=== PATIENT | female | born 1985 | race Caucasian/White ===

== ENCOUNTER 2016-05-19 15:05 | Emergency (ER) | payer MEDICAID ==
[2016-05-19 15:52] LABS: BASOPHILS 0.2 % (0.0-2.0); EOSINOPHILS 0.5 % (0-7); HEMATOCRIT 48.8 % (36.0-48.0); HEMOGLOBIN 16.9 g/dL (12-16); IMMATURE GRANULOCYTES 0.3 % (0-5); LYMPHOCYTES 3.9 % (15-50); MCH 32.3 pg (26.0-34.0); MCHC 34.6 g/dL (31.0-37.0); MCV 93.1 fL (80.0-100.0); MEAN PLATELET VOLUME 11.2 fL (7.4-10.4); NEUTROPHILS 91.1 % (40-80); PLATELET COUNT 219 10x3/uL (130-400); RBC 5.24 10x6/uL (4.00-5.40); RDW 12.7 % (11.5-14.5); WBC 11.7 10x3/uL (4.8-10.8)
[2016-05-19 16:11] LABS: HCG URINE NEGATIVE (NEGATIVE)
[2016-05-19 16:16] LABS: APPEARANCE HAZY (CLEAR); COLOR YELLOW (YELLOW)
[2016-05-19 16:17] LABS: BILIRUBIN NEGATIVE (NEGATIVE); GLUCOSE NEGATIVE (NEGATIVE); KETONE NEGATIVE (NEGATIVE); LEUKOCYTE ESTERASE 1+ (NEGATIVE); NITRITE NEGATIVE (NEGATIVE); PROTEIN TRACE mg/dL (NEGATIVE); SPECIFIC GRAVITY 1.025 (1.005-1.020); UROBILINOGEN NORMAL (NORMAL)
[2016-05-19 16:18] LABS: BACTERIA MODERATE /hpf (NONE SEEN); EPITHELIAL CELLS 0-5 /hpf (0-5); RED CELLS - URINE 0-5 /hpf (0-5)
[2016-05-19 17:41] LABS: CALC OSMOLALITY 269 mosm/kg (275-300); CALCIUM 8.8 mg/dL (8.5-10.1); CARBON DIOXIDE 24.8 mmol/L (21.0-32.0); CHLORIDE - SERUM 100 mmol/L (98-107); CREATININE - SERUM 0.9 mg/dL (0.6-1.3); GLUCOSE 117 mg/dL (74-106); POTASSIUM - SERUM 3.6 mmol/L (3.5-5.1); SODIUM 135 mmol/L (136-145); UREA NITROGEN 9 mg/dL (7-18); eGFR NON AFRICAN AMERICAN 79 mL/min (90-120)
== END 2016-05-19 19:05 | disposition home or self-care (01) ==
LOC: D.ER 15:05
PROVIDERS: Emergency Medicine; Nurse Practitioner Acute Care
DX: K52.9 Noninfective gastroenteritis and colitis, unspecified (principal); F17.200 Nicotine dependence, unspecified, uncomplicated

== ENCOUNTER 2016-08-09 13:04 | Emergency (ER) | payer MEDICAID | END 2016-08-09 15:15 | disposition home or self-care (01) | LOC: D.ER 13:04 | DX: S90.02XA Contusion of left ankle, initial encounter (principal); W20.8XXA Other cause of strike by thrown, projected or falling object, initial encounter; Y93.89 Activity, other specified; Y92.89 Other specified places as the place of occurrence of the external cause; F17.200 Nicotine dependence, unspecified, uncomplicated ==

== ENCOUNTER 2016-12-29 07:58 | Day surgery (SDC) | payer MEDICAID ==
[~2016-12-29 07:58] MED LIST: TYLENOL W/CODEI1 TAB PO; XANAX0.25 MG PO
[2016-12-29 08:46] LABS: HEMATOCRIT 43.2 % (36.0-48.0); HEMOGLOBIN 15.1 g/dL (12-16); MCH 32.1 pg (26.0-34.0); MCV 91.9 fL (80.0-100.0); MEAN PLATELET VOLUME 11.1 fL (7.4-10.4); RBC 4.7 10x6/uL (4.00-5.40); RDW 12.3 % (11.5-14.5); WBC 7.9 10x3/uL (4.8-10.8)
[2016-12-29 08:56] LABS: HCG SERUM POSITIVE (NEGATIVE)
[2016-12-29] MEDS ORDERED: MELOXICAM TAB 15M PO (09:20)
[2016-12-29 09:25] VITALS: BP 95/72; BMI 21.5
[2016-12-29] MEDS ORDERED: TYLENOL W/CODEI1 TAB PO (12:49)
--- NOTE | 2016-12-29 14:42 | NUR ---
1320 IV DC WITH CATHER TIP INTACT
--- NOTE | 2017-01-04 18:14 | OP ---
PATIENT NAME: KEYLA DE LOS SANTOS MEDICAL RECORD: [id number] :87 LOCATION:[facility] ADMISSION DATE: SURGEON: ELLIS FULLER DO DATE OF OPERATION: 12/29/2016 PROCEDURE PERFORMED: Right endoscopic carpal tunnel release. PREOPERATIVE DIAGNOSIS: Right carpal tunnel syndrome. POSTOPERATIVE DIAGNOSIS: Right carpal tunnel syndrome. INDICATIONS: Ms. 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 She presented to me with a nerve conduction study, which showed mild carpal tunnel, distal motor latency in the median nerve in the right hand of 3.9. I discussed at length with her that this is borderline as far as carpal tunnel syndrome and that we could try an injection of steroid in order to get her over these symptoms and she did not want that, in fact, SHE HAS AN ALLERGY TO STEROIDS and she said it is not possible to get one. She says she is tired of the right hand waking her up at night with pain and numbness and tingling. Anytime she goes to sleep, it wakes her up. She is not sleeping through the night. She also says anytime she drives with the hand elevated or on the phone, the hand goes numb and goes to sleep and at her behest and request, decided to undergo the procedure of the right endoscopic carpal tunnel release. Once this was done in the office, she was here for surgery and discovered that she was and this complicated matters somewhat. After a long discussion with her, she decided that she wanted to continue to undergo the procedure knowing the risk and understanding that. This was also discussed with the range mounter and they said that local block would be fine, it should not cause any problems with the whatsoever. So, we proceeded with the local block to do this with her awake. DESCRIPTION OF PROCEDURE: The patient was given a local block in the preoperative area and given a gram of Ancef as well preoperatively. Once this was done, she was taken to the operative suite and laid in supine position. The right arm was prepped and draped in sterile fashion. Time-out was performed and everyone was in agreeance with correct site, side, and patient and everyone is aware of the risks and benefits of the procedure including the patient and everyone was in agreeance. Once this time-out was done, the arm was prepped and draped. An incision was marked out just over the palmaris longus tendon at the proximal wrist crease. Skin was incised with a #15 blade and then blunt dissection was made with Nayan down to the carpal tunnel, this was in the proximal forearm fascia and the distal forearm fascia was released under direct visualization using scissors and a pickup. Then, the dilator was used to open the carpal tunnel and the sheath was placed into the carpal tunnel itself. Once this was done, the camera was placed into the carpal tunnel and into a sheath and a probe was used to probe the transverse carpal ligament, was seen to be very taut and thick. Then, the rasp was used to clean it off to ensure there was no other object in the way and the nerve was not in the way. Once this was done, the knife was then entered into the sheath and used to cut the transverse carpal ligament under direct visualization of the camera and the camera followed it all the way out through the last millimeter of the transverse carpal ligament, which was released with scissors and a pickup. Once this was done, the tourniquet was let down and the larger end of the Ragnell was used to visualize the transverse carpal ligament and seeing that, it was divided all the OPERATIVE REPORT [id number] KEYLA DE LOS SANTOS through the whole carpal tunnel. Once tourniquet was let down, it was 9 minutes that it had been up, and pressure was held on the wound. No bleeding was seen. Then, the incision was closed using 5-0 Monocryl in 2 inverted interrupted stitches. Then, a single Steri-Strip was placed over the wound. Adaptic, 4 x 4, Tegaderm, and then a Kerlix and a lightly wrapped Coban was placed over the wrist. The patient was then taken back to her room as she had not had any anesthetic. The block worked well throughout. Blood loss was minimal. TRANSINT:[id number] Voice Confirmation ID: [id number] DOCUMENT ID: [id number] ELLIS FULLER DO at 1816 CC: [id number] DICTATION DATE: 12/29/16 124 TEST PREPARER: 12/29/16 1607 [facility] 12/29/16 [facility] [address] [place] [address]
== END 2016-12-29 13:50 | disposition home or self-care (01) ==
LOC: D.OPS 07:58 → D.PAN 10:15 → D.OPS 10:30 → D.PAN 10:30 → D.OPS 13:50
PROVIDERS: Anesthesiology
DX: G56.01 Carpal tunnel syndrome, right upper limb (principal); Z88.8 Allergy status to other drugs, medicaments and biological substances; Z01.812 Encounter for preprocedural laboratory examination

== ENCOUNTER → 2017-06-10 11:30 | Outpatient (CLI) | payer MEDICAID ==
[~2017-06-10 11:30] MED LIST changes: +HYDROCODONE-APA1 TAB PO; +IBUPROFEN600 MG PO; +MELOXICAM TAB 15M PO; +PEPCID20 MG PO; +PRENATAL COMPLE1 TAB PO; +ZOFRAN ODT4 MG/UDTAB PO
== END | disposition home or self-care (01) ==
LOC: D.LDO 11:30
DX: O26.899 Other specified pregnancy related conditions, unspecified trimester (principal); Z3A.00 Weeks of gestation of pregnancy not specified; R11.2 Nausea with vomiting, unspecified

== ENCOUNTER → 2017-06-13 21:22 | Outpatient (CLI) | payer MEDICAID ==
[2017-06-13 21:53] LABS: APPEARANCE CLEAR (CLEAR); BILIRUBIN NEGATIVE (NEGATIVE); COLOR STRAW (YELLOW); GLUCOSE NEGATIVE (NEGATIVE); KETONE NEGATIVE (NEGATIVE); NITRITE NEGATIVE (NEGATIVE); PROTEIN NEGATIVE (NEGATIVE); UROBILINOGEN NORMAL (NORMAL)
== END | disposition home or self-care (01) ==
LOC: D.LDO 21:22
PROVIDERS: Obstetrics & Gynecology
DX: O26.893 Other specified pregnancy related conditions, third trimester (principal); Z3A.35 35 weeks gestation of pregnancy; R11.2 Nausea with vomiting, unspecified

== ENCOUNTER 2017-07-02 20:56 | Inpatient (IN) | payer MEDICAID ==
[~2017-07-02] VITALS: Ht 170.2 cm; Wt 74.8 kg
--- NOTE | ~2017-07-02 | OP ---
PATIENT NAME: KEYLA DE LOS SANTOS MEDICAL RECORD: [id number] :87 LOCATION:[facility] ADMISSION DATE:07/03/17 SURGEON: YAAKOV CRYSTAL MD DATE OF OPERATION: 07/03/2017 PREOPERATIVE DIAGNOSES: 1. Severe preeclampsia. 2. Failed induction of labor. POSTOPERATIVE DIAGNOSES: 1. Severe preeclampsia. 2. Failed induction of labor. PROCEDURE: Primary low transverse section. SURGEON: Yaakov Crystal MD ANESTHESIA: Regional. INTRAVENOUS FLUIDS: Per anesthesia record. ESTIMATED BLOOD LOSS: 1000 cc. SPECIMENS: Placenta and cord for gases. FINDINGS: 1. Viable infant, Apgars 9 at one and 9 at five. 2. Placenta delivered manually intact, 3-vessel cord noted. 3. Grossly normal adnexa noted bilaterally. COMPLICATIONS: None apparent. DESCRIPTION OF PROCEDURE: The patient taken to the operating room, where regional anesthesia was achieved without difficulty. The patient was then prepped and draped in normal sterile fashion in the dorsal supine position. SCDs were on and functioning normally, and a Deleon catheter had been placed and was draining freely. The aesthetic field was tested following prepped and draped, and a Pfannenstiel skin incision was made, extended downward to the underlying subcutaneous fat to the level of the fascia. This was then excised in the midline and extended bilaterally using the Sterling scissors. Superior and inferior aspects of the fascial incision were then grasped with Nora clamps times 2, tented upward, and sharply dissected from the underlying rectus muscle using the Sterling scissors and the Bovie cautery. Rectus muscles were then bluntly in the midline. The peritoneum entered sharply at the superior aspect of the incision using the Metzenbaum scissors. Peritoneal incision was then excised bilaterally and inferiorly using the Metzenbaum scissors under direct visualization of the bladder. A bladder blade was then placed into the pelvis and a bladder flap was created by excising the anterior leaf of the broad ligament across the lower uterine segment. A low transverse incision was then made in the uterus using a scalpel. This was extended superiorly and inferiorly using the Pelosi method. Baby's head was then delivered atraumatically followed by the body. The was bulb suctioned upon delivery. Cord was clamped times 2, cut, and the infant was handed to the awaiting nursery team. Cord was then obtained for gases, and the placenta was then removed manually intact. Three-vessel cord was noted. Uterus was then OPERATIVE REPORT [id number] KEYLA DE LOS SANTOS exteriorized, cleared of all clots and debris, and vigorously massaged until good uterine tone was noted. The uterine incision was then repaired with 0 Vicryl in a running locked fashion times 2 with good hemostasis noted. Posterior cul-de-sac was then thoroughly irrigated, and the uterus was replaced into the pelvis. Anterior cul-de-sac was then thoroughly irrigated and again good hemostasis was noted from the uterine incision site. Counts were correct times 2 for needles, sponges, and instruments. The fascia was then repaired with 0 loop PDS times 1, and the skin repaired with memo. The patient tolerated the procedure well, transferred to postanesthesia recovery stable without incident. TRANSINT:[id number] Voice Confirmation ID: [id number] DOCUMENT ID: [id number] YAAKOV CRYSTAL MD at 1614 CC: [id number] DICTATION DATE: 07/17/17 06 KENO DEALER: 07/17/17 0756 DIS IN 07/05/17 [facility] [address] [place] [address]
[~2017-07-02 20:56] MED LIST changes: -HYDROCODONE-APA1 TAB PO; -IBUPROFEN600 MG PO; -PEPCID20 MG PO; -PRENATAL COMPLE1 TAB PO; -ZOFRAN ODT4 MG/UDTAB PO
[2017-07-02 23:02] LABS: BASOPHILS 0.1 % (0-2); EOSINOPHILS 0.9 % (0-7); HEMATOCRIT 35.5 % (36.0-48.0); HEMOGLOBIN 12.4 g/dL (12-16); IMMATURE GRANULOCYTES 0.3 % (0-5); LYMPHOCYTES 17.3 % (15-50); MCH 31.6 pg (26.0-34.0); MCHC 34.9 g/dL (31.0-37.0); MCV 90.6 fL (80.0-100.0); MEAN PLATELET VOLUME 11.9 fL (7.4-10.4); MONOCYTES 4.9 % (2-11); NEUTROPHILS 76.5 % (40-80); RBC 3.92 10x6/uL (4.00-5.40); RDW 11.8 % (11.5-14.5)
[2017-07-02 23:03] LABS: PLATELET COUNT 145 10x3/uL (130-400)
[2017-07-02 23:15] LABS: ALBUMIN 2.2 g/dL (3.4-5.0); ALKALINE PHOSPHATASE 208 U/L (46-116); ALT (SGPT) 8 U/L (10-68); BILIRUBIN - DIRECT 0.11 mg/dL (0.00-0.30); BILIRUBIN - INDIRECT 0.12 mg/dL (0.00-1.00); BILIRUBIN - TOTAL 0.23 mg/dL (0.2-1.3); CALC OSMOLALITY 273 mosm/kg (275-300); CALCIUM 8.6 mg/dL (8.5-10.1); CARBON DIOXIDE 24.5 mmol/L (21.0-32.0); CHLORIDE - SERUM 105 mmol/L (98-107); CREATININE - SERUM 0.6 mg/dL (0.6-1.3); GLUCOSE 82 mg/dL (74-106); PROTEIN - SERUM 5.9 g/dL (6.4-8.2); SODIUM 139 mmol/L (136-145); UREA NITROGEN 4 mg/dL (7-18); eGFR NON AFRICAN AMERICAN > 90 mL/min (90-120)
[2017-07-03] VITALS (22 sets, daily range): BP systolic 125–190; BP diastolic 58–110; Ht 170.2 cm; Wt 74.8 kg
[2017-07-03 00:28] LABS: APPEARANCE CLEAR (CLEAR); BILIRUBIN NEGATIVE (NEGATIVE); COLOR YELLOW (YELLOW); GLUCOSE NEGATIVE (NEGATIVE); KETONE NEGATIVE (NEGATIVE); NITRITE NEGATIVE (NEGATIVE); PROTEIN NEGATIVE (NEGATIVE); UROBILINOGEN NORMAL (NORMAL)
[2017-07-03] MEDS ORDERED: PRENATAL COMPLE1 TAB PO (04:05)
[2017-07-03] MEDS ORDERED: ZOFRAN ODT4 MG/UDTAB PO (04:08)
[2017-07-03] MEDS ORDERED: PEPCID20 MG PO (04:09)
[2017-07-03 21:16] LABS: BASOPHILS 0.1 % (0-2); EOSINOPHILS 0.7 % (0-7); HEMATOCRIT 36.2 % (36.0-48.0); HEMOGLOBIN 12.3 g/dL (12-16); IMMATURE GRANULOCYTES 0.3 % (0-5); LYMPHOCYTES 15.1 % (15-50); MCH 31.1 pg (26.0-34.0); MCV 91.4 fL (80.0-100.0); MEAN PLATELET VOLUME 11.8 fL (7.4-10.4); MONOCYTES 4.1 % (2-11); NEUTROPHILS 79.7 % (40-80); PLATELET COUNT 140 10x3/uL (130-400); RBC 3.96 10x6/uL (4.00-5.40); RDW 11.7 % (11.5-14.5); WBC 15.3 10x3/uL (4.8-10.8)
[2017-07-04] VITALS (11 sets, daily range): BP systolic 132–156; BP diastolic 70–97
[2017-07-04 07:00] LABS: BASOPHILS 0.1 % (0-2); EOSINOPHILS 0.8 % (0-7); HEMATOCRIT 36.6 % (36.0-48.0); HEMOGLOBIN 12.6 g/dL (12-16); IMMATURE GRANULOCYTES 0.3 % (0-5); LYMPHOCYTES 12.7 % (15-50); MCH 31.2 pg (26.0-34.0); MCHC 34.4 g/dL (31.0-37.0); MCV 90.6 fL (80.0-100.0); MEAN PLATELET VOLUME 11.5 fL (7.4-10.4); MONOCYTES 3.7 % (2-11); NEUTROPHILS 82.4 % (40-80); PLATELET COUNT 153 10x3/uL (130-400); RBC 4.04 10x6/uL (4.00-5.40); RDW 11.8 % (11.5-14.5); WBC 14.5 10x3/uL (4.8-10.8)
[2017-07-05 00:45] VITALS: BP 167/81
[2017-07-05 08:30] VITALS: BP 143/80
[2017-07-05] MEDS ORDERED: HYDROCODONE-APA1 TAB PO (11:43)
[2017-07-05] MEDS ORDERED: IBUPROFEN600 MG PO (11:43)
[2017-07-06 07:28] LABS: RAPID PLASMA REAGIN Non Reactive (Non Reactive)
== END 2017-07-05 12:20 | disposition home or self-care (01) | DRG 766 ==
LOC: D.LDO 20:56 → D.LD 23:48 → D.LDO 07-03 02:35 → D.LD 07-03 17:21
PROVIDERS: Obstetrics & Gynecology
PROC: 10907ZC Drainage of Amniotic Fluid, Therapeutic from Products of Conception, Via Natural or Artificial Opening (ICD-10-PCS; 2017-07-03)
PROC: 10D00Z1 Extraction of Products of Conception, Low, Open Approach (ICD-10-PCS; principal; 2017-07-03 15:44)
DX: O13.4 Gestational [pregnancy-induced] hypertension without significant proteinuria, complicating childbirth (principal); O69.1XX0 Labor and delivery complicated by cord around neck, with compression, not applicable or unspecified; Z3A.38 38 weeks gestation of pregnancy; Z37.0 Single live birth